=== PATIENT | male | born 1995 | race African-American/Black ===

== ENCOUNTER 2016-07-11 21:53 | Emergency (ER) | payer SELFPAY ==
[~2016-07-11] VITALS: Ht 190.5 cm; Wt 102.1 kg
== END 2016-07-11 23:09 | disposition home or self-care (01) ==
LOC: ED 21:53
DX: S01.01XA Laceration without foreign body of scalp, initial encounter (principal); W10.9XXA Fall (on) (from) unspecified stairs and steps, initial encounter; Y93.89 Activity, other specified; Y92.9 Unspecified place or not applicable; Y99.9 Unspecified external cause status

== ENCOUNTER 2017-06-15 13:38 | Emergency (ER) | payer SELFPAY ==
[~2017-06-15] VITALS: Ht 190.5 cm; Wt 104.3 kg
[2017-06-15] MEDS ORDERED: Motrin,Rufen800 MG PO (15:11)
[2017-06-15] MEDS ORDERED: CYCLOBENZAPRINE5 M3 PO (15:11)
== END 2017-06-15 15:14 | disposition home or self-care (01) ==
LOC: ED 13:38
DX: S20.229A Contusion of unspecified back wall of thorax, initial encounter (principal); F17.200 Nicotine dependence, unspecified, uncomplicated; W17.89XA Other fall from one level to another, initial encounter; Y93.89 Activity, other specified; Y92.89 Other specified places as the place of occurrence of the external cause; Y99.8 Other external cause status

== ENCOUNTER 2017-12-28 01:04 | Emergency (ER) | payer SELFPAY ==
[~2017-12-28] VITALS: Ht 187.9 cm; Wt 106.6 kg
--- NOTE | ~2017-12-28 | EKG ---
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
[~2017-12-28 01:04] MED LIST: CYCLOBENZAPRINE5 M3 PO; Motrin,Rufen800 MG PO
[2017-12-28 01:23] LABS: HEMATOCRIT 41.1 % (42.0-52.0); HEMOGLOBIN 13.5 g/dl (14.0-18.0); MEAN CELL VOLUME 89.7 fl (80.0-94.0); MEAN CORPUSCULAR HGB 29.5 pg (27.0-31.0); MEAN CORPUSCULAR HGB CONC 32.8 g/dl (33.0-37.0); MEAN PLATELET VOLUME 9.2 fl (9.6-12.3); PLATELET COUNT AUTOMATED 295 10*3/uL (130-400); RED BLOOD COUNT 4.58 10*6/uL (4.50-5.90); WHITE BLOOD COUNT 7.4 10*3/uL (4.8-10.8)
[2017-12-28 01:44] LABS: ALBUMIN 4.4 gm/dl (3.1-4.5); ALKALINE PHOSPHATASE 53 U/L (45-117); BUN 18 mg/dl (7-24); CHLORIDE 105 mmol/L (98-107); CREATININE 1.58 mg/dL (0.70-1.30); POTASSIUM 3.7 mmol/L (3.5-5.1); SGOT/AST 19 IU/L (3-35); SGPT/ALT 22 U/L (12-78); SODIUM 140 mmol/L (136-145); TOTAL PROTEIN 7.6 gm/dL (6.4-8.2)
[2017-12-28 01:45] LABS: TROPONIN I < 0.015 ng/ml (<0.045)
[2017-12-28 01:49] LABS: ATYPICAL LYMPHS 11 % (0-0); PLATELET SUFFICIENCY NORMAL (NORMAL); TOTAL CELLS COUNTED 100 #CELLS
[2017-12-28 02:05] LABS: URINE AMPHETAMINES < 1000 (1000ng/ml); URINE BARBITURATES < 200 (200ng/ml); URINE BENZODIAZEPINES < 200 (200ng/ml); URINE CANNABINOIDS (THC) > 50 (50ng/ml); URINE COCAINE < 300 (300ng/ml); URINE METHADONE < 300 (300ng/ml); URINE OPIATES < 300 (300ng/ml); URINE PHENCYCLIDINE < 25 (25ng/ml)
== END 2017-12-28 03:02 | disposition home or self-care (01) ==
LOC: ED 01:04
PROVIDERS: Emergency Medicine Emergency Medical Services
DX: R41.82 Altered mental status, unspecified (principal); R55 Syncope and collapse

== ENCOUNTER 2018-01-05 21:25 | Emergency (ER) | payer SELFPAY ==
[~2018-01-05] VITALS: Ht 182.8 cm; Wt 81.6 kg
--- NOTE | ~2018-01-05 | EKG ---
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
[2018-01-05 22:10] LABS: BASO % 0.2 % (0.0-1.0); EOS # 0.1 10*3/uL (0.0-0.4); EOS % 0.3 % (1.0-4.0); HEMATOCRIT 43.7 % (42.0-52.0); HEMOGLOBIN 14.5 g/dl (14.0-18.0); LYMPH # 1.6 10*3/uL (1.3-4.4); LYMPH % 8.1 % (27.0-41.0); MEAN CELL VOLUME 90.5 fl (80.0-94.0); MEAN CORPUSCULAR HGB CONC 33.2 g/dl (33.0-37.0); MONO # 1.4 10*3/uL (0.1-1.0); NEUT # 16.3 10*3/uL (2.3-7.9); NEUT % 83.4 % (47.0-73.0); PLATELET COUNT AUTOMATED 291 10*3/uL (130-400); RED BLOOD COUNT 4.83 10*6/uL (4.50-5.90); RED CELL DISTRI WIDTH 12.3 % (0-14.5); WHITE BLOOD COUNT 19.5 10*3/uL (4.8-10.8)
[2018-01-05 22:32] LABS: ALBUMIN 4.3 gm/dl (3.1-4.5); CREATININE 2.04 mg/dL (0.70-1.30); POTASSIUM 4.4 mmol/L (3.5-5.1); TOTAL PROTEIN 8.1 gm/dL (6.4-8.2)
[2018-01-05 22:33] LABS: TROPONIN I 0.058 ng/ml (<0.045)
== END 2018-01-06 00:28 | disposition left against medical advice (07) ==
LOC: ED 21:25
PROVIDERS: Emergency Medicine
DX: T50.7X1A Poisoning by analeptics and opioid receptor antagonists, accidental (unintentional), initial encounter (principal); Y92.098 Other place in other non-institutional residence as the place of occurrence of the external cause

== ENCOUNTER 2018-03-10 19:07 | Emergency (ER) | payer SELFPAY ==
[~2018-03-10] VITALS: Ht 187.9 cm; Wt 95.3 kg
== END 2018-03-10 22:33 | disposition left against medical advice (07) ==
LOC: ED 19:07
DX: T50.901A Poisoning by unspecified drugs, medicaments and biological substances, accidental (unintentional), initial encounter (principal); Z53.21 Procedure and treatment not carried out due to patient leaving prior to being seen by health care provider

== ENCOUNTER 2018-07-30 02:06 | Emergency (ER) | payer SELFPAY ==
[~2018-07-30] VITALS: Ht 187.9 cm; Wt 104.3 kg
[2018-09-15] MEDS ORDERED: VISTARIL50 MG PO (23:55)
[2018-09-15] MEDS ORDERED: ELIMITE 5%60 GM T (23:55)
== END 2018-07-30 03:32 | disposition home or self-care (01) ==
LOC: ED 02:06
DX: T50.901A Poisoning by unspecified drugs, medicaments and biological substances, accidental (unintentional), initial encounter (principal); R11.10 Vomiting, unspecified; Y92.89 Other specified places as the place of occurrence of the external cause

== ENCOUNTER 2018-08-04 07:46 | Emergency (ER) | payer SELFPAY ==
[~2018-08-04] VITALS: Ht 187.9 cm; Wt 104.3 kg
[2018-09-15] MEDS ORDERED: ELIMITE 5%60 GM T (23:55)
[2018-09-15] MEDS ORDERED: VISTARIL50 MG PO (23:55)
== END 2018-08-04 08:09 | disposition left against medical advice (07) ==
LOC: ED 07:46
DX: T40.1X1A Poisoning by heroin, accidental (unintentional), initial encounter (principal); R40.20 Unspecified coma; Y92.89 Other specified places as the place of occurrence of the external cause

== ENCOUNTER 2018-11-28 22:34 | Emergency (ER) | payer BC ==
[~2018-11-28] VITALS: Ht 187.9 cm; Wt 104.3 kg
[~2018-11-28 22:34] MED LIST changes: +ELIMITE 5%60 GM T; +VISTARIL50 MG PO
[2018-11-28] MEDS ORDERED: ELIMITE 5%60 GM T (22:54)
[2018-11-28] MEDS ORDERED: CEPHALEXIN500 M1 PO (22:54)
== END 2018-11-29 01:20 | disposition home or self-care (01) ==
LOC: ED 22:34
DX: R21 Rash and other nonspecific skin eruption (principal); L29.9 Pruritus, unspecified

== ENCOUNTER 2019-01-04 01:58 | Emergency (ER) | payer BC ==
[~2019-01-04] VITALS: Ht 187.9 cm; Wt 99.8 kg
[~2019-01-04 01:58] MED LIST changes: +CEPHALEXIN500 M1 PO
[2019-01-04 02:38] LABS: BASO % 0.5 % (0.0-1.0); EOS # 0.3 10*3/uL (0.0-0.4); EOS % 4.2 % (1.0-4.0); HEMATOCRIT 39.9 % (42.0-52.0); HEMOGLOBIN 13.4 g/dl (14.0-18.0); LYMPH # 2.5 10*3/uL (1.3-4.4); LYMPH % 32.9 % (27.0-41.0); MEAN CELL VOLUME 88.5 fl (80.0-94.0); MEAN CORPUSCULAR HGB 29.7 pg (27.0-31.0); MEAN CORPUSCULAR HGB CONC 33.6 g/dl (33.0-37.0); MEAN PLATELET VOLUME 10.4 fl (9.6-12.3); MONO # 1.1 10*3/uL (0.1-1.0); MONO % 14.9 % (3.0-9.0); NEUT # 3.6 10*3/uL (2.3-7.9); NEUT % 47.2 % (47.0-73.0); PLATELET COUNT AUTOMATED 337 10*3/uL (130-400); RED BLOOD COUNT 4.51 10*6/uL (4.50-5.90); RED CELL DISTRI WIDTH 12.4 % (0-14.5); WHITE BLOOD COUNT 7.6 10*3/uL (4.8-10.8)
[2019-01-04 02:55] LABS: ALKALINE PHOSPHATASE 55 U/L (45-117); BUN 15 mg/dl (7-24); CHLORIDE 103 mmol/L (98-107); CREATININE 1.44 mg/dL (0.70-1.30); POTASSIUM 3.8 mmol/L (3.5-5.1); SGOT/AST 41 IU/L (3-35); SGPT/ALT 24 U/L (12-78); SODIUM 137 mmol/L (136-145); TOTAL PROTEIN 8.1 gm/dL (6.4-8.2)
[2019-01-04] MEDS ORDERED: CLINDAMYCIN HC300 MG PO (05:40)
[2019-01-04] MEDS ORDERED: ELIMITE 5%60 GM T (05:41)
== END 2019-01-04 06:20 | disposition left against medical advice (07) ==
LOC: ED 01:58
PROVIDERS: Emergency Medicine
DX: L03.115 Cellulitis of right lower limb (principal); B86 Scabies

== ENCOUNTER 2019-04-03 19:22 | Emergency (ER) | payer SELFPAY ==
[~2019-04-03 19:22] MED LIST changes: +CLINDAMYCIN HC300 MG PO
[2019-04-03 20:39] LABS: BASO % 0.4 % (0.0-1.0); EOS # 0.3 10*3/uL (0.0-0.4); EOS % 2.9 % (1.0-4.0); HEMATOCRIT 41.7 % (42.0-52.0); HEMOGLOBIN 13.5 g/dl (14.0-18.0); LYMPH # 2.7 10*3/uL (1.3-4.4); LYMPH % 28.6 % (27.0-41.0); MEAN CELL VOLUME 89.9 fl (80.0-94.0); MEAN CORPUSCULAR HGB 29.1 pg (27.0-31.0); MEAN CORPUSCULAR HGB CONC 32.4 g/dl (33.0-37.0); MEAN PLATELET VOLUME 9.1 fl (9.6-12.3); MONO # 1.3 10*3/uL (0.1-1.0); MONO % 13.6 % (3.0-9.0); NEUT # 5.1 10*3/uL (2.3-7.9); NEUT % 54.3 % (47.0-73.0); PLATELET COUNT AUTOMATED 351 10*3/uL (130-400); RED BLOOD COUNT 4.64 10*6/uL (4.50-5.90); RED CELL DISTRI WIDTH 12.3 % (0-14.5); WHITE BLOOD COUNT 9.4 10*3/uL (4.8-10.8)
[2019-04-03 20:54] LABS: ALBUMIN 3.6 gm/dl (3.1-4.5); ALKALINE PHOSPHATASE 74 U/L (45-117); BUN 9 mg/dl (7-24); CHLORIDE 105 mmol/L (98-107); CREATININE 1.38 mg/dL (0.70-1.30); POTASSIUM 3.5 mmol/L (3.5-5.1); SGOT/AST 13 IU/L (3-35); SGPT/ALT 21 U/L (12-78); SODIUM 139 mmol/L (136-145); TOTAL PROTEIN 7.7 gm/dL (6.4-8.2)
[2019-04-03] MEDS ORDERED: DOXYCYCLINE100 M3 PO (22:49)
== END 2019-04-03 23:40 | disposition home or self-care (01) ==
LOC: ED 19:22
PROVIDERS: Nurse Practitioner Family
DX: M25.562 Pain in left knee (principal); L03.114 Cellulitis of left upper limb

== ENCOUNTER 2019-04-05 21:10 | Inpatient (IN) | payer SELFPAY ==
[~2019-04-05] VITALS: Ht 187.9 cm; Wt 104.3 kg
[~2019-04-05 21:10] MED LIST changes: +DOXYCYCLINE100 M3 PO
[2019-04-05 21:12] VITALS: BP 146/80
[2019-04-05 22:20] LABS: HEMATOCRIT 37.3 % (42.0-52.0); HEMOGLOBIN 12.1 g/dl (14.0-18.0); MEAN CELL VOLUME 90.3 fl (80.0-94.0); MEAN CORPUSCULAR HGB 29.3 pg (27.0-31.0); MEAN CORPUSCULAR HGB CONC 32.4 g/dl (33.0-37.0); PLATELET COUNT AUTOMATED 294 10*3/uL (130-400); RED BLOOD COUNT 4.13 10*6/uL (4.50-5.90); RED CELL DISTRI WIDTH 12.2 % (0-14.5)
[2019-04-05 22:33] LABS: ALBUMIN 3.5 gm/dl (3.1-4.5); ALKALINE PHOSPHATASE 76 U/L (45-117); BUN 11 mg/dl (7-24); CHLORIDE 108 mmol/L (98-107); CREATININE 1.57 mg/dL (0.70-1.30); POTASSIUM 3.5 mmol/L (3.5-5.1); SGOT/AST 21 IU/L (3-35); SGPT/ALT 22 U/L (12-78); SODIUM 141 mmol/L (136-145); TOTAL PROTEIN 7.4 gm/dL (6.4-8.2)
[2019-04-05 23:08] LABS: TOTAL CELLS COUNTED 100 #CELLS
[2019-04-05 23:09] LABS: MICROCYTOSIS SLIGHT; PLATELET SUFFICIENCY NORMAL (NORMAL)
[2019-04-06] VITALS: BP 146/80
--- NOTE | 2019-04-06 01:50 | NUR ---
UNABLE TO ACCESS MEDICATION FROM PYXIS. AWAITING NURSING DISTANCE EDUCATION DIRECTOR.
--- NOTE | 2019-04-06 03:39 | NUR ---
PT RESTING IN BED AT THIS TIME. NO VOICED COMPLAINTS. CALL LIGHT WITHIN REACH, WILL CONTINUE TO MONITOR.
[2019-04-06 04:00] VITALS: BP 146/80
--- NOTE | 2019-04-06 04:41 | NUR ---
PT CONTINUES TO SLEEP IN ROOM. RESTING COMFORTABLY, NO VOICED COMPLAINTS. CALL LIGHT WITHIN REACH. WILL CONTINUE TO MONITOR.
--- NOTE | 2019-04-06 05:36 | NUR ---
NOTIFICATION FROM LAB OF THE LACTIC ACID OF 2.3 LEE VILLEGAS RN.
[2019-04-06 06:12] LABS: HEMOGLOBIN 11.5 g/dl (14.0-18.0); MEAN CORPUSCULAR HGB 28.8 pg (27.0-31.0); MEAN CORPUSCULAR HGB CONC 31.9 g/dl (33.0-37.0); MEAN PLATELET VOLUME 9.2 fl (9.6-12.3); PLATELET COUNT AUTOMATED 307 10*3/uL (130-400); RED CELL DISTRI WIDTH 12.2 % (0-14.5); WHITE BLOOD COUNT 15.3 10*3/uL (4.8-10.8)
--- NOTE | 2019-04-06 06:15 | NUR ---
PT REMAINS SLEEPING IN BED AT THIS TIME. NO VOICED COMPLAINTS. WILL CONTINUE TO MONITOR.
[2019-04-06 06:16] LABS: ALBUMIN 3.1 gm/dl (3.1-4.5); ALKALINE PHOSPHATASE 73 U/L (45-117); BUN 11 mg/dl (7-24); CHLORIDE 109 mmol/L (98-107); CREATININE 1.46 mg/dL (0.70-1.30); PHOSPHOROUS 2.3 mg/dL (2.5-4.9); POTASSIUM 3.6 mmol/L (3.5-5.1); SGOT/AST 21 IU/L (3-35); SGPT/ALT 20 U/L (12-78); SODIUM 140 mmol/L (136-145); TOTAL PROTEIN 6.9 gm/dL (6.4-8.2)
[2019-04-06 07:35] LABS: BASOPHILS 1 % (0-1); PLATELET SUFFICIENCY NORMAL (NORMAL); TOTAL CELLS COUNTED 100 #CELLS
[2019-04-06 07:37] VITALS: BP 129/53
--- NOTE | 2019-04-06 07:39 | NUR ---
REPORT RECEIVED FROM DANIELLE SIMPSON.PT ALERT/ORIENTED X3. VITALS STABLE. AWAITING ADMISSION BED. NO C/O PAIN. LEFT UPPER ARM SWOLLEN...PT STATES IT APPEARS LESS SWOLLEN THAN YESTERDAY. PT HAS MULTIPLE OLD SCARRED AREAS TO BOTH ARMS. ----- ---CARMELA BUCKLEY RN
[2019-04-06 08:32] LABS: BILIRUBIN NEGATIVE (NEGATIVE); BLOOD 1+ (NEGATIVE); CLARITY CLEAR (CLEAR); COLOR YELLOW (YELLOW); GLUCOSE NEGATIVE (NEGATIVE); KETONE NEGATIVE (NEGATIVE); LEUKO ESTERASE NEGATIVE (NEGATIVE); NITRITE NEGATIVE (NEGATIVE); UROBILINOGEN 0.2 E.U./dl (0.2-1.0)
[2019-04-06 08:41] LABS: RBC 0-2 rbc/hpf (0-2); WBC 0-2 wbc/hpf (0-5)
[2019-04-06 08:49] LABS: URINE AMPHETAMINES < 1000 (1000ng/ml); URINE BARBITURATES < 200 (200ng/ml); URINE BENZODIAZEPINES < 200 (200ng/ml); URINE CANNABINOIDS (THC) > 50 (50ng/ml); URINE COCAINE > 300 (300ng/ml); URINE METHADONE < 300 (300ng/ml); URINE OPIATES > 300 (300ng/ml)
[2019-04-06 08:52] LABS: URINE PHENCYCLIDINE < 25 (25ng/ml)
[2019-04-06 09:00] VITALS: BP 146/80
--- NOTE | 2019-04-06 09:00 | NUR ---
The assessment has been completed. AYDEN RIVAS Time: 09 A 24 year old MALE admitted to 5E under services of JARROD RUIZ DO. Pt. arrived via ambulatory from ER. Chief complaint: CELLULITIS OF LEFT UPPER ARM,ABSCESS. AYDEN RIVAS
--- NOTE | 2019-04-06 09:09 | NUR ---
THIS NURSE AND RECREATIONAL COUNSELOR ISA ATTEMPTING TO COMPLETE ADMISSION PROCESS. PT YELLING OUT AND CURSING. ATTEMPTING TO DE-ESCALATE PT. PT IS VERY JUMPY, ANXIOUS AND TEARFUL.
[2019-04-06 09:30] VITALS: BP 140/86
--- NOTE | 2019-04-06 09:58 | NUR ---
PT FOUND TO HAVE RIPPED IV OUT AND DISCONNECTED TUBING FROM IV PUMP. C/O INCREASED ANIXETY AND RESTLESSNESS. MEDICATED W CLONIDINE AND VISTARIL. WILL MONITOR FOR RELIEF. TATIANA STOVALL STARTED NEW 22G IV IN THE RIGHT ARM.
--- NOTE | 2019-04-06 10:13 | NUR ---
INFORMED CARE TEAM OF PATIENT REFUSING TO GO SURGERY. HE STATES HE TOOK "ALOT OF DRUGS BEFORE COMING INTO THE ER YESTERDAY AND HES SCARED HES GOING TO OVERDOSE AGAIN". DR RIVERA STATES HE WILL COME UP TO SEE THE PT
--- NOTE | 2019-04-06 10:16 | NUR ---
DR RIVERA IN TO TALK WITH PT
--- NOTE | 2019-04-06 11:00 | NUR ---
PT AGREEABLE TO HAVE BEDSIDE I&D. INFORMED CONSENT FORM SIGNED OFF BY TWO RNS AND TWO DOCTORS. PT HAD POSITIVE TOXICOLOGY SCREEN AND WAS UNABLE TO SIGN. PT TOLERATED PROCEDURE WELL. GUAZE DRESSING C/D/I
[2019-04-06 12:00] VITALS: BP 150/76
--- NOTE | 2019-04-06 12:33 | NUR ---
Filament Cutter in to talk to patient. Patient states lives at HOME with PARENTS. There are FEW steps in the home. Physician: NONE Pharmacy: [facility] Home health services: NONE Patient's level of ADLs: INDEPENDENT Patient has working utilities: YES DME: NONE Follow-up physician's appointment after d/c: WILL FIND ONE AND MAKE APPOINTMENT AFTER DISCHARGE Does patient want to access PORTAL?: NO Discharge plan PT LIVES AT HOME WITH PARENTS AND IS INDEPENDENT IN HIS CARE. STATES HE WILL HAVE NO NEW NEEDS ON DISCHARGE. PLANS TO RETURN HOME. WILL CONTINUE TO FOLLOW. PT STATES HE IS ON PROBATION FOR DRUG COURT AND NEEDS A PAPER FAXED TO THEM STATING HE IS IN THE HOSPITAL. STATES YOU CAN TELL THEM I AM HERE BUT NOT WHY I AM HERE. PT PROVIDED NUMBER AND LETTER WAS FAXED TO JERALD KRAMER AT [facility] THAT STATED PT WAS HERE AND NOTHING ELSE. WILL CONTINUE TO FOLLOW.. BRE DREW
--- NOTE | 2019-04-06 14:17 | NUR ---
PT RESTING IN ROOM WITH FRIENDS AT BEDSIDE. VOICES NO CONCERNS AT THIS TIME. APPEARS TO BE LESS ANXIOUS AND JITTERY. RESPS EASY AND NON LABORED. NO S/S OF DISTRESS NOTED.
--- NOTE | 2019-04-06 15:11 | NUR ---
PT FOUND TO BE PACING HALLWAY BECOMING VERY AGITATED. CALLED AND TOLD DR EDWARD. STATED HE WOULD PUT SOMETHING IN
--- NOTE | 2019-04-06 15:15 | NUR ---
STAFF ATTEMPTING TO CALM PT DOWN. RIPPED OUT IV AGAIN. CONTINUES TO YELL AT STAFF MEMBERS IN THE HALLWAY AND IN ROOM. SHIFT DIRECTOR NOTIFIED. SECURITY CALLED TO THE FLOOR.
--- NOTE | 2019-04-06 15:38 | NUR ---
DR VAIL AT BEDSIDE. EXPLAIN RISKS OF LEAVING AMA TO PT. NURSE FINGERPRINT EXPERT AND DIRECTOR PRESENT. PT IS ALERT AND ORIENTEDX3. BECOMING INCREASINGLY AGITATED. CRYING AND BEHAVIOR ERRATIC. PT STATES HE WOULD LIKE TO LEAVE AMA. AWAITING TRANSPORTATION AT THIS TIME. DR VAIL AT BEDSIDE.
--- NOTE | 2019-04-06 15:48 | NUR ---
TWO VISITORS ATTEMPTED TO VISIT PT. ROTARY CUTTER FEEDER ASKED THEM TO PLEASE WAIT IN THE WAITING AREA. PT IS CURRENTLY YELLING AND CURSING AT DIRECTOR IN THE MIDDLE OF THE HALLWAY. THREATING TO "FLIP OUT". PT SLAMMED DOOR IN DIRECTORS FACE. DIRECTOR STATED TO CALL THE POLICE AND CALL A [employer].
--- NOTE | 2019-04-06 15:51 | NUR ---
ANOTHER RN ATTEMPTING TO REACH PTS MOTHER AT THIS TIME. SHE STATES SHES ABOUT 5 MINS AWAY AT THIS TIME.
[2019-04-06] MEDS ORDERED: DOXYCYCLINE100 M3 PO (15:54)
[2019-04-06] MEDS ORDERED: KEFLEX500 M1 PO (15:54)
--- NOTE | 2019-04-06 16:07 | NUR ---
PTS MOTHER ARRIVED TO THE FLOOR. CURRENTLY IN TO TALK WITH PT
--- NOTE | 2019-04-06 16:33 | NUR ---
PT ESCORTED OFF FLOOR BY [facility].
--- NOTE | 2019-04-06 16:54 | NUR ---
The Discharge Plan/Instructions have been completed.
== END 2019-04-06 16:54 | disposition other institution (70) | DRG 871 ==
LOC: ED 21:10 → 5E 23:35 → EDHOLD 23:35 → 5E 04-06 08:38
PROVIDERS: Nurse Practitioner Family; Student in an Organized Health Care Education/Training Program; ADMIT Internal Medicine
PROC: 0X990ZZ Drainage of Left Upper Arm, Open Approach (ICD-10-PCS; principal; 2019-04-06)
DX: A41.9 Sepsis, unspecified organism (principal); N17.0 Acute kidney failure with tubular necrosis; L03.114 Cellulitis of left upper limb; L02.414 Cutaneous abscess of left upper limb; D64.9 Anemia, unspecified; F12.10 Cannabis abuse, uncomplicated; F14.10 Cocaine abuse, uncomplicated; R73.9 Hyperglycemia, unspecified; E87.8 Other disorders of electrolyte and fluid balance, not elsewhere classified; F11.10 Opioid abuse, uncomplicated; D72.810 Lymphocytopenia; F17.210 Nicotine dependence, cigarettes, uncomplicated; E83.39 Other disorders of phosphorus metabolism

== ENCOUNTER 2019-05-09 22:11 | Emergency (ER) | payer SELFPAY ==
[~2019-05-09] VITALS: Ht 182.8 cm; Wt 81.6 kg
[~2019-05-09 22:11] MED LIST changes: +KEFLEX500 M1 PO
[2019-05-10 02:28] LABS: BASO # 0.1 10*3/uL (0.0-0.1); BASO % 0.5 % (0.0-1.0); EOS # 0.4 10*3/uL (0.0-0.4); EOS % 4.7 % (1.0-4.0); HEMATOCRIT 40.4 % (42.0-52.0); HEMOGLOBIN 12.9 g/dl (14.0-18.0); LYMPH # 3.2 10*3/uL (1.3-4.4); LYMPH % 34.2 % (27.0-41.0); MEAN CELL VOLUME 90.6 fl (80.0-94.0); MEAN CORPUSCULAR HGB 28.9 pg (27.0-31.0); MEAN CORPUSCULAR HGB CONC 31.9 g/dl (33.0-37.0); MEAN PLATELET VOLUME 9.4 fl (9.6-12.3); MONO # 1.1 10*3/uL (0.1-1.0); MONO % 11.8 % (3.0-9.0); NEUT # 4.6 10*3/uL (2.3-7.9); NEUT % 48.6 % (47.0-73.0); PLATELET COUNT AUTOMATED 292 10*3/uL (130-400); RED BLOOD COUNT 4.46 10*6/uL (4.50-5.90); RED CELL DISTRI WIDTH 12.8 % (0-14.5); WHITE BLOOD COUNT 9.4 10*3/uL (4.8-10.8)
[2019-05-10 02:51] LABS: ALBUMIN 3.9 gm/dl (3.1-4.5); ALKALINE PHOSPHATASE 58 U/L (45-117); BUN 12 mg/dl (7-24); CHLORIDE 108 mmol/L (98-107); CREATININE 1.68 mg/dL (0.70-1.30); POTASSIUM 4.4 mmol/L (3.5-5.1); SGOT/AST 20 IU/L (3-35); SGPT/ALT 24 U/L (12-78); SODIUM 141 mmol/L (136-145); TOTAL PROTEIN 7.3 gm/dL (6.4-8.2)
[2019-05-10 02:52] LABS: TROPONIN I 0.032 ng/ml (<0.045)
== END 2019-05-10 04:50 | disposition home or self-care (01) ==
LOC: ED 22:11
PROVIDERS: Emergency Medicine
DX: T40.1X1A Poisoning by heroin, accidental (unintentional), initial encounter (principal); F17.210 Nicotine dependence, cigarettes, uncomplicated; Y92.89 Other specified places as the place of occurrence of the external cause

== ENCOUNTER 2019-05-27 13:34 | Emergency (ER) | payer SELFPAY ==
[~2019-05-27] VITALS: Ht 187.9 cm; Wt 104.3 kg
[2019-05-27] MEDS ORDERED: CLINDAMYCIN HC300 MG PO (14:30)
== END 2019-05-27 16:51 | disposition home or self-care (01) ==
LOC: ED 13:34
DX: T40.0X1A Poisoning by opium, accidental (unintentional), initial encounter (principal); L51.9 Erythema multiforme, unspecified; R40.20 Unspecified coma; L02.413 Cutaneous abscess of right upper limb; F17.210 Nicotine dependence, cigarettes, uncomplicated; Y92.89 Other specified places as the place of occurrence of the external cause

== ENCOUNTER 2019-09-26 10:25 | Inpatient (IN) | payer BC ==
[~2019-09-26] VITALS: Ht 187.9 cm; Wt 95.9 kg
[2019-09-26 10:29] VITALS: BP 126/89
[2019-09-26 11:05] LABS: HEMATOCRIT 32.3 % (42.0-52.0); MEAN CELL VOLUME 88.3 fl (80.0-94.0); MEAN CORPUSCULAR HGB 28.4 pg (27.0-31.0); MEAN CORPUSCULAR HGB CONC 32.2 g/dl (33.0-37.0); MEAN PLATELET VOLUME 9.4 fl (9.6-12.3); PLATELET COUNT AUTOMATED 299 10*3/uL (130-400); RED BLOOD COUNT 3.66 10*6/uL (4.50-5.90); RED CELL DISTRI WIDTH 13.6 % (0-14.5); WHITE BLOOD COUNT 15.3 10*3/uL (4.8-10.8)
[2019-09-26 11:13] LABS: ALKALINE PHOSPHATASE 81 U/L (45-117); BUN 16 mg/dl (7-24); CHLORIDE 107 mmol/L (98-107); CREATININE 1.36 mg/dL (0.70-1.30); POTASSIUM 3.8 mmol/L (3.5-5.1); SGOT/AST 106 IU/L (3-35); SGPT/ALT 80 U/L (12-78); SODIUM 139 mmol/L (136-145); TOTAL PROTEIN 7.4 gm/dL (6.4-8.2)
--- NOTE | 2019-09-26 11:13 | NUR ---
PT STILL UNABLE TO VOID,FLUIDS PROVIDED.SAFETY PRECAUTIONS INTACT AND CALL LIGHT WITHIN REACH.
[2019-09-26 11:29] LABS: BASOPHILS 1 % (0-1); PLATELET SUFFICIENCY NORMAL (NORMAL); TOTAL CELLS COUNTED 100 #CELLS
[2019-09-26 13:00] VITALS: BP 132/82
[2019-09-26 13:30] VITALS: BP 137/62
--- NOTE | 2019-09-26 13:30 | NUR ---
Time: 1329 A 24 year old MALE admitted to 5E under services of CRISTINO PADILLA DO. Pt. arrived via CART from ER. Chief complaint: CELLULITIS AND ABSCESS OF UPPER ARM AND FOREARM. IV- LAC C/D/I. PT HAS MULTIPLE SCABS AND ULCERS GENERALIZED OVER BODY. RT ARM IS SWOLLEN, RED, AND DRAINING. RIGHT ARM IS ALSO PAINFUL TO TOUCH. PEDRO AVILES
[2019-09-26 13:49] VITALS: BP 137/62
--- NOTE | 2019-09-26 14:10 | NUR ---
CALLED AND NOTIFIED DR. VAIL OF PATIENTS ARRIVAL. AWAITING ORDERS.
--- NOTE | 2019-09-26 14:30 | NUR ---
PRN TYLENOL WAS GIVEN FOR PT'S RIGHT ARM PAIN. WILL REASSESS EFFECTIVENESS.
--- NOTE | 2019-09-26 14:40 | NUR ---
CALLED DR. VAIL IN REGARDS TO URINE DRUG SCREEN, PT WAS AGREEABLE WITH SENDING A URINE SAMPLE. ALSO TOLD DR. VAIL THAT PT WAS WANTING IBUPROFEN, PER DR. VAIL PT CAN NOT RECEIVE IBUPROFEN DUE TO KIDNEY FUNCTION. THIS INFORMATION WAS ALSO RELAYED TO THE PATIENT AND HE STATED IT WAS OKAY. ALSO NOTIFIED HIM THAT PT'S RIGHT ARM IS SWOLLEN AND DRAINING. CULTURE NEEDS DONE PER DR. VAIL. SEE NEW ORDERS.
[2019-09-26 14:58] LABS: URINE AMPHETAMINES < 1000 (1000ng/ml); URINE BARBITURATES < 200 (200ng/ml); URINE BENZODIAZEPINES < 200 (200ng/ml); URINE CANNABINOIDS (THC) < 50 (50ng/ml); URINE COCAINE > 300 (300ng/ml); URINE METHADONE < 300 (300ng/ml); URINE OPIATES < 300 (300ng/ml)
[2019-09-26 15:00] LABS: URINE PHENCYCLIDINE < 25 (25ng/ml)
--- NOTE | 2019-09-26 15:30 | NUR ---
PRN TYLENOL WAS EFFECTIVE. PT IS CURRENTLY SLEEPING WITH NO SIGNS OF DISTRESS.
[2019-09-26 16:00] VITALS: BP 126/59
--- NOTE | 2019-09-26 18:56 | NUR ---
PRN TYLENOL GIVEN FOR A PAIN LEVEL OF 10/10 ON RT ARM. WILL REASSESS EFFECTIVENESS.
[2019-09-26 20:00] VITALS: BP 149/74
--- NOTE | 2019-09-27 | NUR ---
PATIENT REFUSED MIDNIGHT VITALS.
--- NOTE | 2019-09-27 00:32 | NUR ---
PATIENT MEDICATED WITH TYLENOL FOR TEMP OF 101.7. WILL MONITOR FOR EFFECTIVENESS. CALL LIGHT IN REACH.
--- NOTE | 2019-09-27 05:43 | NUR ---
TYLENOL GIVEN FOR ARM DISCOMFORT. TEMP AT THIS TIME 98.8. REFUSED AM LAB DRAW. WILL CONTINUE TO MONITOR.
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
[2019-09-27 08:00] VITALS: BP 130/82
--- NOTE | 2019-09-27 08:34 | NUR ---
Dr. Manjarrez notified of wound care recommendations.
--- NOTE | 2019-09-27 08:46 | NUR ---
ASSESSMENT COMPLETE, PT STATES PAIN RIGHT ARM, EDEMA FROM FINGERS TO ELBOW. PT CAN WIGGLE GINGERS, CLOSE HAND SLIGHTLY, NOT COMPLETLY. PT DOES NOT HAVE AN IDEA OF WHEN HE LAST HAD A BOWEL MOVEMENT, HE STATES HE USUALLY ONLY HAS A BM EVERY FEW DAYS. NO COMPLAINTS OF N/V/D/C AT THIS TIME. PT STATES NO NEEDS. IV LEFT AC INTACT, VANC INFUSING. WILL MONITOR FOR NEEDS.
--- NOTE | 2019-09-27 10:27 | NUR ---
pt request tylenol for right arm pain 11/07, tylenol given. will monitor for effectiveness.
--- NOTE | 2019-09-27 10:50 | NUR ---
DR. FERRIS NOTIFIED OF POSITIVE BLOOD CULTURE RESULTS, NO NEW ORDERS AT THIS TIME
--- NOTE | 2019-09-27 11:06 | NUR ---
PT HAD PREVIOUSLY REFUSED BLOOD WORK, BLOOD CULTURES WERE ORDERED, PT ALLOWED LABS TO BE DRAWN. AM LABS REORDERED.
[2019-09-27 11:14] LABS: BASO % 0.1 % (0.0-1.0); EOS # 0.1 10*3/uL (0.0-0.4); EOS % 0.4 % (1.0-4.0); HEMATOCRIT 32.6 % (42.0-52.0); LYMPH # 1.7 10*3/uL (1.3-4.4); LYMPH % 12.1 % (27.0-41.0); MEAN CELL VOLUME 86.5 fl (80.0-94.0); MEAN CORPUSCULAR HGB 28.4 pg (27.0-31.0); MEAN CORPUSCULAR HGB CONC 32.8 g/dl (33.0-37.0); MEAN PLATELET VOLUME 9.4 fl (9.6-12.3); MONO # 1.1 10*3/uL (0.1-1.0); MONO % 8.1 % (3.0-9.0); NEUT # 10.8 10*3/uL (2.3-7.9); NEUT % 78.9 % (47.0-73.0); PLATELET COUNT AUTOMATED 282 10*3/uL (130-400); RED BLOOD COUNT 3.77 10*6/uL (4.50-5.90); RED CELL DISTRI WIDTH 13.6 % (0-14.5); WHITE BLOOD COUNT 13.7 10*3/uL (4.8-10.8)
[2019-09-27 11:25] LABS: BUN 7 mg/dl (7-24); CHLORIDE 108 mmol/L (98-107); CREATININE 1.11 mg/dL (0.70-1.30); POTASSIUM 3.4 mmol/L (3.5-5.1); SODIUM 138 mmol/L (136-145)
[2019-09-27 12:00] VITALS: BP 149/76
--- NOTE | 2019-09-27 12:13 | NUR ---
Flute Grinder in to talk to patient. Patient states lives at HOME with PARENTS. There are 14 steps in the home. Physician: VANDANA Pharmacy: [facility] [place] health services: NONE Patient's level of ADLs: INDEPENDENT Patient has working utilities: YES DME: NONE Follow-up physician's appointment after d/c: WILL BE MADE BY HOSPITALIST NURSE DIRECTOR ON DISCHARGE Does patient want to access PORTAL?: NO Discharge plan PT LIVES AT HOME WITH HIS PARENTS AND IS INDEPENDENT IN HIS CARE. DENIES HE WILL HAVE ANY NEEDS ON DISCHARGE. PLAN IS TO RETURN HOME WITH PARENTS. WILL CONTINUE TO FOLLOW. WILL HAVE A RIDE HOME PER PT.. BRE DREW
--- NOTE | 2019-09-27 12:34 | NUR ---
Nursing screen received and chart reviewed. Patient admitted for cellulitis and abscess to the upper arm and forearm. If patient has a decline in ADLs, transfers, or functional mobility, please send OT orders. Thank you. Bonny Jorge OTR/L
--- NOTE | 2019-09-27 13:57 | NUR ---
Nutritional Support Services Note: Appetite is good for meals, he is eating 100% of regular diet. He has cellulitis noted and an abscess of his upper arm and forearm. Continut to encourage 100% intake of meals. Will provide pt iwth a night snack. Will follow as needed. Sarah Kimball Rdn Ld
--- NOTE | 2019-09-27 13:59 | NUR ---
DR. BOUDREAUX AWARE OF CONSULT, WILL SEE LATER TODAY
--- NOTE | 2019-09-27 14:16 | NUR ---
NOTIFIED DR. MONET THAT PATIENT IN A LOT OF PAIN, REQUESTING SOMETHING MORE THAN TYLENOL FOR PAIN. NO VERBAL ORDERS GIVEN
--- NOTE | 2019-09-27 14:57 | NUR ---
PT GIVEN TORADOL FOR C/O RIGHT ARM PAIN SENT TO ULTRASOUND
--- NOTE | 2019-09-27 15:20 | NUR ---
ATTEMPTED TO CALL CONSULT TO DR. VELEZ OFFICE SEVERAL TIMES, ON HOLD MORE THAN 5 MINUTE EACH ATTEMPT AT CALLING, SEVERAL TIMES THE LINE DISCONNECTED AFTER A FEW MINUTE HOLD. WILL KEEP TRYING TO GET THROUGH TO OFFICE TO NOTIFY OF CONSULT
[2019-09-27 16:00] VITALS: BP 136/60
--- NOTE | 2019-09-27 16:13 | NUR ---
DR. VELEZ ANSWERING SERVICE NOTIFIED OF CONSULT, WILL NOTIFY PHYSICIAN
--- NOTE | 2019-09-27 18:33 | NUR ---
PT COMPLAIN OF RIGHT ARM PAIN 7/10, NORCO GIVEN. WILL MONITOR FOR EFFECTIVENESS
--- NOTE | 2019-09-27 19:45 | NUR ---
PT C/O BACK PAIN 11/07. MEDICATED W/MORHPINE IVP. PT TEACHING GIVEN ON NEED TO AMBULATE TO AVOID BLOOD CLOTS, BACK PAIN, AND CONSTIPATION. PT ACKNOWLEDGES. RUE ELEVATED ON PILLOWS. SWELLING DECREASED FROM THIS AM. PT ADVISED OF NPO STATUS AFTER MIDNIGHT FOR SURGERY. CALL LIGHT IN REACH.
--- NOTE | 2019-09-27 20:45 | NUR ---
PT STATES THE MORPHINE WAS SOMEWHAT EFFECTIVE FOR BACK PAIN RELIEF.
--- NOTE | 2019-09-27 22:11 | NUR ---
PT CONTINUES TO C/O BACK PAIN. PT ENCOURAGED TO AMBULATE. PT ASSISTED TO RECLINER CHAIR IN ROOM. RUE ELEVATED ON PILLOWS. BLANKETS APPLIED OVER PT PER HIS REQUEST D/T FEELING CHILLED. CALL LIGHT IN REACH.
--- NOTE | 2019-09-27 22:45 | NUR ---
PT CONTINUES TO C/O BACK PAIN. ASSISTED BACK TO BED. MEDICATED W/NORCO.
--- NOTE | 2019-09-27 23:45 | NUR ---
PT RESTING QUIETLY IN BED W/EYES CLOSED. CALL LIGHT IN REACH.
[2019-09-28] VITALS (11 sets, daily range): BP systolic 113–175; BP diastolic 52–90
--- NOTE | 2019-09-28 01:55 | NUR ---
PT MEDICATED W/MORPHINE IVP FOR C/O RT ARM PAIN 11/07. RUE REMAINS ELEVATED ON PILLOWS/BEDSIDE TABLE. PT OFFERED ICE PACK AND REFUSED.
--- NOTE | 2019-09-28 02:04 | NUR ---
PT MEDICATED W/RESTORIL FOR C/O INSOMNIA.
--- NOTE | 2019-09-28 02:55 | NUR ---
PRN MORPHINE EFFECTIVE FOR PAIN RELIED EVIDENCED BY NO S/S OF DISTRESS NOTED AND PT SLEEPING. CALL LIGHT IN REACH.
--- NOTE | 2019-09-28 03:00 | NUR ---
PT RESTING QUEITLY IN BED W/EYES CLOSED. PRN RESTORIL EFFECTIVE.
--- NOTE | 2019-09-28 03:39 | NUR ---
PT MEDICATED W/NORCO FOR C/O RUE PAIN 01/07 AT THIS TIME.
--- NOTE | 2019-09-28 07:40 | NUR ---
PT C/O OF RIGHT ARM PAIN RATING 6/10 PRN MORPHINE PER ORDER
--- NOTE | 2019-09-28 07:40 | NUR ---
PT C/O RUE PAIN 11/07. MEDICATED W/MORPHINE IVP.
[2019-09-28 07:56] LABS: BASO % 0.1 % (0.0-1.0); EOS # 0.1 10*3/uL (0.0-0.4); EOS % 0.8 % (1.0-4.0); LYMPH # 1.7 10*3/uL (1.3-4.4); LYMPH % 14.7 % (27.0-41.0); MEAN CELL VOLUME 85.6 fl (80.0-94.0); MEAN CORPUSCULAR HGB CONC 32.6 g/dl (33.0-37.0); MEAN PLATELET VOLUME 9.7 fl (9.6-12.3); MONO # 1.1 10*3/uL (0.1-1.0); MONO % 9.6 % (3.0-9.0); NEUT # 8.5 10*3/uL (2.3-7.9); NEUT % 74.5 % (47.0-73.0); PLATELET COUNT AUTOMATED 328 10*3/uL (130-400); RED BLOOD COUNT 3.97 10*6/uL (4.50-5.90); RED CELL DISTRI WIDTH 13.4 % (0-14.5); WHITE BLOOD COUNT 11.5 10*3/uL (4.8-10.8)
[2019-09-28 08:19] LABS: ALBUMIN 2.6 gm/dl (3.1-4.5); ALKALINE PHOSPHATASE 79 U/L (45-117); BUN 6 mg/dl (7-24); CHLORIDE 108 mmol/L (98-107); CREATININE 1.01 mg/dL (0.70-1.30); POTASSIUM 3.2 mmol/L (3.5-5.1); SGOT/AST 57 IU/L (3-35); SGPT/ALT 70 U/L (12-78); SODIUM 138 mmol/L (136-145); TOTAL PROTEIN 7.4 gm/dL (6.4-8.2)
--- NOTE | 2019-09-28 08:20 | NUR ---
PT STILL IN PAIN, PER HOSPITALIST CALL , CALLED AND LEFT MESSAGE WITH OR REGARDING PAIN
--- NOTE | 2019-09-28 09:22 | NUR ---
PRN NORCO GIVEN FOR RIGHT ARM PAIN AND BACK PAIN RATING 8/10
--- NOTE | 2019-09-28 10:00 | NUR ---
PT RESTING IN BED WITH EYES CLOSED NO COMPLAINTS AT THIS TIME
--- NOTE | 2019-09-28 11:30 | NUR ---
PT LIVES AT HOME WITH PARENTS. CAN RETURN HOME WHEN MEDICALLY STABLE. WILL CONTINUE TO FOLLOW.
--- NOTE | 2019-09-28 13:17 | NUR ---
PT C/O OF RIGHT ARM PAIN RATING 7/10 PRN MORPHINE GIVEN FOR PAIN
--- NOTE | 2019-09-28 13:30 | NUR ---
PT GLENN FOR I&D
--- NOTE | 2019-09-28 13:31 | NUR ---
PT REFUSED HIV TESTING AT THIS TIME, PER PT HE WAS TESTED IN [place] AND WAS NEGATIVE, PT DENIES SHARING NEEDLES, UNPROTECTED SEX,
--- NOTE | 2019-09-28 16:30 | NUR ---
PT RETURNED FOR OR, PT AA&0X3, DRESSING TO RIGHT ARM CLEAN DRY AND INTACT, MOTHER AT BEDSIDE AT THIS TIME
--- NOTE | 2019-09-28 17:20 | NUR ---
PRN NORCO GIVEN FOR C/O OG PAIN RATING 5/10 TO RIGHT ARM
--- NOTE | 2019-09-28 18:00 | NUR ---
PER PT PRN NORCO WAS EFFECTIVE FOR PAIN
--- NOTE | 2019-09-28 19:38 | NUR ---
ASSUMED CARE FOR THIS PT AT THIS TIME. PT C/O RUE PAIN. MEDICATED W/MORPHINE IVP. DRSG DRY/INTACT TO RUE. PT STATES PAIN IS MUCH TOLERABLE. 2+ RADIAL PULSE. PT REFUSING HIV TESTING. CALL LIGHT IN REACH.
--- NOTE | 2019-09-28 21:33 | NUR ---
PT STATES MORPHINE DOES NOT LAST FOR PAIN RELIEF. MEDICATED W/NORCO PER REQUEST. CALL LIGHT IN REACH.
--- NOTE | 2019-09-28 22:30 | NUR ---
PT RESTING QUEITLY IN BED W/EYES CLOSED. NO S/S OF DISTRESS NOTED. PRN NORCO EFFECTIVE.
[2019-09-29] VITALS: BP 136/66
--- NOTE | 2019-09-29 03:19 | NUR ---
PT C/O RUE PAIN. MEDICATED W/NORCO. RUE DRSG REINFORCED D/T SATURATION. WILL MONITOR.
[2019-09-29 07:09] LABS: BASO % 0.3 % (0.0-1.0); EOS # 0.2 10*3/uL (0.0-0.4); EOS % 1.5 % (1.0-4.0); HEMATOCRIT 32.7 % (42.0-52.0); LYMPH # 2.2 10*3/uL (1.3-4.4); LYMPH % 21.6 % (27.0-41.0); MEAN CELL VOLUME 86.1 fl (80.0-94.0); MEAN CORPUSCULAR HGB 27.6 pg (27.0-31.0); MEAN CORPUSCULAR HGB CONC 32.1 g/dl (33.0-37.0); MEAN PLATELET VOLUME 9.7 fl (9.6-12.3); MONO % 9.7 % (3.0-9.0); NEUT # 6.7 10*3/uL (2.3-7.9); NEUT % 66.3 % (47.0-73.0); PLATELET COUNT AUTOMATED 350 10*3/uL (130-400); RED CELL DISTRI WIDTH 13.7 % (0-14.5); WHITE BLOOD COUNT 10.2 10*3/uL (4.8-10.8)
[2019-09-29 07:37] LABS: ALBUMIN 2.4 gm/dl (3.1-4.5); ALKALINE PHOSPHATASE 68 U/L (45-117); BUN 6 mg/dl (7-24); CHLORIDE 111 mmol/L (98-107); CREATININE 0.96 mg/dL (0.70-1.30); POTASSIUM 3.6 mmol/L (3.5-5.1); SGOT/AST 41 IU/L (3-35); SGPT/ALT 59 U/L (12-78); SODIUM 140 mmol/L (136-145); TOTAL PROTEIN 6.8 gm/dL (6.4-8.2)
[2019-09-29 08:00] VITALS: BP 139/73
--- NOTE | 2019-09-29 11:26 | NUR ---
LIVES AT HOME WITH PARENTS. WILL RETURN HOME WHEN MEDICALLY STABLE WITH NO NEEDS. WILL CONTINUE TO FOLLOW.
[2019-09-29 12:00] VITALS: BP 128/77
--- NOTE | 2019-09-29 13:30 | NUR ---
PT INFORMED THAT IV ANTIBIOTICS WERE APPROVED AND I WILL CALL HIM WITH TIME ONCE SET UP WITH TIME. PHARMACY INFORMED TO ORDER MEDICATION. CENTRAL SCHEDULING NOTIFIED. PT TO COME IN TOMORROW September AT 2:30 PM FOR MEDS. ORDER FAXED TO CENTRAL SCHEDULING, PHARMACY AND REGISTRATION.
--- NOTE | 2019-09-29 13:32 | NUR ---
CALL ANTHEM TO GET PRE AUTORAZATION FOR DALBAVANCIN, PER BINTA AT [facility] ANTHEM NO AUTH IS NEEDED FOR MEDICATION. CALL REF # [id number]
--- NOTE | 2019-09-29 13:41 | NUR ---
Discharge instructions reviewed with patient/family. Patient receptive and verbalizes understanding. Follow-up care arranged. Written instructions given to patient/family. MONTSE RODRIGUEZ
--- NOTE | 2019-09-29 13:49 | NUR ---
CURRICULUM DEVELOPER MILLY OCONNELL NOTIFIED THAT PT WOULD BE COMING TO FLOOR AT 2:30 ON September FOR IV MEDICAIONS. COPY OF ORDER GIVEN TO MARYURI WOODSON ON 4TH FLOOR.
--- NOTE | 2019-09-29 13:52 | NUR ---
CALLED PT AND TOLD HIM HE NEEDED TO BE HERE AT 2:30 PM TOMORROW FOR IV INFUSION. PT VOICES UNDERSTANDING.
== END 2019-09-29 13:41 | disposition home or self-care (01) | DRG 871 ==
LOC: ED 10:25 → 5E 12:28 → EDHOLD 12:28 → 5E 12:48
PROVIDERS: Internal Medicine; Nurse Practitioner Family; Student in an Organized Health Care Education/Training Program; Surgery; ADMIT Emergency Medicine
PROC: 0X960ZZ Drainage of Right Upper Extremity, Open Approach (ICD-10-PCS; principal; 2019-09-28)
DX: A41.89 Other specified sepsis (principal); N17.0 Acute kidney failure with tubular necrosis; L03.113 Cellulitis of right upper limb; L02.413 Cutaneous abscess of right upper limb; F12.90 Cannabis use, unspecified, uncomplicated; F14.10 Cocaine abuse, uncomplicated; E55.9 Vitamin D deficiency, unspecified; F11.90 Opioid use, unspecified, uncomplicated; B95.61 Methicillin susceptible Staphylococcus aureus infection as the cause of diseases classified elsewhere; E87.6 Hypokalemia; L98.499 Non-pressure chronic ulcer of skin of other sites with unspecified severity; D64.9 Anemia, unspecified; R73.9 Hyperglycemia, unspecified; Z72.0 Tobacco use

== ENCOUNTER 2019-12-22 06:31 | Emergency (ER) | payer BC ==
[~2019-12-22] VITALS: Ht 182.8 cm; Wt 90.7 kg
== END 2019-12-22 07:58 | disposition home or self-care (01) ==
LOC: ED 06:31
DX: F19.10 Other psychoactive substance abuse, uncomplicated (principal); F12.90 Cannabis use, unspecified, uncomplicated; F14.90 Cocaine use, unspecified, uncomplicated; F11.90 Opioid use, unspecified, uncomplicated; F17.200 Nicotine dependence, unspecified, uncomplicated

== ENCOUNTER 2020-02-20 15:56 | Emergency (ER) | payer BC ==
[~2020-02-20] VITALS: Ht 190.5 cm; Wt 89.8 kg
[2020-02-20 16:43] LABS: BASO % 0.5 % (0.0-1.0); EOS # 0.4 10*3/uL (0.0-0.4); EOS % 4.6 % (1.0-4.0); HEMATOCRIT 36.8 % (42.0-52.0); LYMPH # 4.1 10*3/uL (1.3-4.4); LYMPH % 51.9 % (27.0-41.0); MEAN CORPUSCULAR HGB 27.4 pg (27.0-31.0); MEAN CORPUSCULAR HGB CONC 31.5 g/dl (33.0-37.0); MEAN PLATELET VOLUME 8.8 fl (9.6-12.3); MONO # 0.6 10*3/uL (0.1-1.0); MONO % 7.5 % (3.0-9.0); NEUT # 2.7 10*3/uL (2.3-7.9); NEUT % 34.6 % (47.0-73.0); PLATELET COUNT AUTOMATED 372 10*3/uL (130-400); RED BLOOD COUNT 4.23 10*6/uL (4.50-5.90); RED CELL DISTRI WIDTH 14.1 % (0-14.5); WHITE BLOOD COUNT 7.9 10*3/uL (4.8-10.8)
[2020-02-20 17:01] LABS: ACT PARTIAL THROMBO TIME 23.6 SECONDS (20.0-32.1); INTERNATIONAL NORM RATIO 1.1 (2.0-3.5)
[2020-02-20 17:05] LABS: ALBUMIN 3.8 gm/dl (3.1-4.5); ALKALINE PHOSPHATASE 77 U/L (45-117); BUN 13 mg/dl (7-24); CHLORIDE 106 mmol/L (98-107); CPK 753 U/L (39-308); CREATININE 1.68 mg/dL (0.70-1.30); LDH 297 U/L (87-241); POTASSIUM 3.7 mmol/L (3.5-5.1); SGOT/AST 31 IU/L (3-35); SGPT/ALT 19 U/L (12-78); SODIUM 141 mmol/L (136-145); TOTAL PROTEIN 8.4 gm/dL (6.4-8.2)
[2020-02-20 17:06] LABS: ETHYL ALCOHOL < 3.0 mg/dl (<3); TROPONIN I < 0.015 ng/ml (<0.045)
== END 2020-02-20 18:48 | disposition home or self-care (01) ==
LOC: ED 15:56
PROVIDERS: Emergency Medicine
DX: F19.10 Other psychoactive substance abuse, uncomplicated (principal); R05 Cough; R79.1 Abnormal coagulation profile

== ENCOUNTER 2020-04-13 16:36 | Emergency (ER) | payer OTHER ==
[~2020-04-13] VITALS: Ht 190.5 cm; Wt 90.7 kg
[2020-04-13] MEDS ORDERED: Motrin,Rufen800 MG PO (17:40)
== END 2020-04-13 18:00 | disposition home or self-care (01) ==
LOC: ED 16:36
DX: S39.012A Strain of muscle, fascia and tendon of lower back, initial encounter (principal); F17.200 Nicotine dependence, unspecified, uncomplicated; V49.9XXA Car occupant (driver) (passenger) injured in unspecified traffic accident, initial encounter; Y93.89 Activity, other specified; Y92.89 Other specified places as the place of occurrence of the external cause; Y99.8 Other external cause status

== ENCOUNTER 2020-04-17 17:23 | Emergency (ER) | payer OTHER | END 2020-04-17 18:17 | disposition home or self-care (01) | LOC: ED 17:23 | DX: S39.012A Strain of muscle, fascia and tendon of lower back, initial encounter (principal); F17.200 Nicotine dependence, unspecified, uncomplicated; Z79.899 Other long term (current) drug therapy; V89.2XXA Person injured in unspecified motor-vehicle accident, traffic, initial encounter; Y93.89 Activity, other specified; Y92.488 Other paved roadways as the place of occurrence of the external cause; Y99.8 Other external cause status ==

== ENCOUNTER 2021-05-31 08:07 | Emergency (ER) | payer SELFPAY ==
[~2021-05-31] VITALS: Wt 95.3 kg
[2021-05-31 10:29] LABS: BASO % 0.7 % (0.0-1.0); EOS # 0.6 10*3/uL (0.0-0.4); EOS % 10.7 % (1.0-4.0); HEMATOCRIT 38.8 % (42.0-52.0); LYMPH % 55.1 % (27.0-41.0); MEAN CELL VOLUME 85.7 fl (80.0-94.0); MEAN CORPUSCULAR HGB 27.4 pg (27.0-31.0); MEAN PLATELET VOLUME 9.2 fl (9.6-12.3); MONO # 0.5 10*3/uL (0.1-1.0); MONO % 9.8 % (3.0-9.0); NEUT # 1.3 10*3/uL (2.3-7.9); NEUT % 23.5 % (47.0-73.0); PLATELET COUNT AUTOMATED 249 10*3/uL (130-400); RED BLOOD COUNT 4.53 10*6/uL (4.50-5.90); RED CELL DISTRI WIDTH 11.9 % (0-14.5); WHITE BLOOD COUNT 5.5 10*3/uL (4.8-10.8)
[2021-05-31 10:43] LABS: BUN 9 mg/dl (7-24); CHLORIDE 106 mmol/L (98-107); CREATININE 1.18 mg/dL (0.70-1.30); POTASSIUM 3.9 mmol/L (3.5-5.1); SODIUM 139 mmol/L (136-145)
[2021-05-31 10:47] LABS: ETHYL ALCOHOL < 3.0 mg/dl (<3)
== END 2021-05-31 10:57 | disposition home or self-care (01) ==
LOC: ED 08:07
PROVIDERS: Internal Medicine
DX: R05.9 Cough, unspecified (principal)

== ENCOUNTER 2021-09-28 18:29 | Emergency (ER) | payer MEDICAID ==
[~2021-09-28] VITALS: Ht 185.4 cm; Wt 81.6 kg
[2021-09-28] MEDS ORDERED: CLINDAMYCIN HC300 MG PO (20:44)
[2021-09-28] MEDS ORDERED: IBU600 M1 PO (21:01)
== END 2021-09-28 20:52 | disposition left against medical advice (07) ==
LOC: ED 18:29
DX: L03.113 Cellulitis of right upper limb (principal)

== ENCOUNTER 2022-06-20 16:00 | Inpatient (IN) | payer MEDICAID ==
[~2022-06-20] VITALS: Ht 188 cm; Wt 97.2 kg
[~2022-06-20 16:00] MED LIST changes: +IBU600 M1 PO
[2022-06-20 16:12] VITALS: BP 141/87
[2022-06-20 17:26] LABS: BASO # 0.1 10*3/uL (0.0-0.1); BASO % 1.2 % (0.0-1.0); EOS # 0.6 10*3/uL (0.0-0.4); EOS % 11.4 % (1.0-4.0); HEMATOCRIT 40.2 % (42.0-52.0); LYMPH # 2.6 10*3/uL (1.3-4.4); LYMPH % 53.4 % (27.0-41.0); MEAN CELL VOLUME 86.3 fl (80.0-94.0); MEAN CORPUSCULAR HGB 28.1 pg (27.0-31.0); MEAN CORPUSCULAR HGB CONC 32.6 g/dl (33.0-37.0); MEAN PLATELET VOLUME 8.6 fl (9.6-12.3); MONO # 0.3 10*3/uL (0.1-1.0); MONO % 6.7 % (3.0-9.0); NEUT # 1.3 10*3/uL (2.3-7.9); NEUT % 27.3 % (47.0-73.0); PLATELET COUNT AUTOMATED 311 10*3/uL (130-400); RED BLOOD COUNT 4.66 10*6/uL (4.50-5.90); RED CELL DISTRI WIDTH 12.8 % (0-14.5); WHITE BLOOD COUNT 4.9 10*3/uL (4.8-10.8)
[2022-06-20 17:44] LABS: ALKALINE PHOSPHATASE 133 U/L (46-116); BUN 8 mg/dl (9-23); CHLORIDE 105 mmol/L (98-107); POTASSIUM 3.8 mmol/L (3.4-5.1); SGPT/ALT 59 U/L (10-49); TOTAL PROTEIN 8.5 gm/dL (6.0-8.0)
[2022-06-20 17:44] LABS: BILIRUBIN 2+ (Negative); BLOOD Negative (Negative); CLARITY Clear (Clear); COLOR Dark Yellow (Yellow); GLUCOSE Negative (Negative); KETONE Trace (Negative); LEUKO ESTERASE Negative (Negative); NITRITE Negative (Negative); PH 5.5 (4.5-8.0); SPECIFIC GRAVITY >= 1.030 (1.001-1.030)
[2022-06-20 17:47] LABS: ETHYL ALCOHOL < 3.0 mg/dl (<3)
[2022-06-20 17:52] LABS: URINE AMPHETAMINES Positive (1000ng/ml); URINE BARBITURATES Negative (200ng/ml); URINE BENZODIAZEPINES Positive (200ng/ml); URINE CANNABINOIDS (THC) Positive (50ng/ml); URINE COCAINE Positive (300ng/ml); URINE METHADONE Negative (300ng/ml); URINE OPIATES Positive (300ng/ml); URINE PHENCYCLIDINE Negative (25ng/ml)
[2022-06-20 18:04] LABS: BACTERIA 1+; CALCIUM OXALATE CRYSTALS Trace; MUCOUS 2+
[2022-06-21] VITALS: BP 134/71
[2022-06-21 08:00] VITALS: BP 123/67
[2022-06-21 14:01] LABS: HEMATOCRIT 39.8 % (42.0-52.0); MEAN CELL VOLUME 88.4 fl (80.0-94.0); MEAN CORPUSCULAR HGB 27.8 pg (27.0-31.0); MEAN CORPUSCULAR HGB CONC 31.4 g/dl (33.0-37.0); MEAN PLATELET VOLUME 9.1 fl (9.6-12.3); PLATELET COUNT AUTOMATED 264 10*3/uL (130-400); RED CELL DISTRI WIDTH 12.9 % (0-14.5); WHITE BLOOD COUNT 5.3 10*3/uL (4.8-10.8)
[2022-06-21 14:02] LABS: MANUAL DIFF REFLEX YES
[2022-06-21 14:10] LABS: ACT PARTIAL THROMBO TIME 25.7 SECONDS (20.0-32.1)
[2022-06-21 14:32] LABS: ATYPICAL LYMPHS 3 % (0-0); PLATELET SUFFICIENCY NORMAL (NORMAL); TOTAL CELLS COUNTED 100 #CELLS
[2022-06-21 14:34] LABS: BURR CELLS FEW; ROULEAUX SLIGHT
[2022-06-21 16:00] VITALS: BP 135/82
[2022-06-22 10:07] LABS: HBSAG Negative (Negative); HEP B CORE AB, IGM Negative (Negative)
== END 2022-06-21 19:05 | disposition left against medical advice (07) | DRG 770 ==
LOC: 5E 16:00
PROVIDERS: Family Medicine; Student in an Organized Health Care Education/Training Program; ADMIT Internal Medicine; ATTEND Internal Medicine
DX: F11.13 Opioid abuse with withdrawal (principal); F15.10 Other stimulant abuse, uncomplicated; F17.210 Nicotine dependence, cigarettes, uncomplicated; D64.9 Anemia, unspecified; R74.01 Elevation of levels of liver transaminase levels; Z53.29 Procedure and treatment not carried out because of patient's decision for other reasons; Z79.899 Other long term (current) drug therapy

== ENCOUNTER 2022-09-21 21:02 | Emergency (ER) | payer MEDICAID ==
[~2022-09-21] VITALS: Ht 187.9 cm; Wt 102.5 kg
[2022-09-21] MEDS ORDERED: SUBOXONE 8 MG-1 EACH SL (21:26)
[2022-09-21 22:05] LABS: BASO % 0.1 % (0.0-1.0); EOS # 0.2 10*3/uL (0.0-0.4); EOS % 2.3 % (1.0-4.0); HEMATOCRIT 41.4 % (42.0-52.0); LYMPH # 2.2 10*3/uL (1.3-4.4); LYMPH % 31.9 % (27.0-41.0); MEAN CELL VOLUME 88.7 fl (80.0-94.0); MEAN CORPUSCULAR HGB 28.1 pg (27.0-31.0); MEAN CORPUSCULAR HGB CONC 31.6 g/dl (33.0-37.0); MEAN PLATELET VOLUME 9.7 fl (9.6-12.3); MONO % 14.3 % (3.0-9.0); NEUT # 3.5 10*3/uL (2.3-7.9); PLATELET COUNT AUTOMATED 175 10*3/uL (130-400); RED BLOOD COUNT 4.67 10*6/uL (4.50-5.90); RED CELL DISTRI WIDTH 12.3 % (0-14.5); WHITE BLOOD COUNT 6.9 10*3/uL (4.8-10.8)
[2022-09-21 22:30] LABS: ALKALINE PHOSPHATASE 67 U/L (46-116); BUN 6 mg/dl (9-23); CHLORIDE 108 mmol/L (98-107); POTASSIUM 4.1 mmol/L (3.4-5.1); SGPT/ALT 123 U/L (10-49); TOTAL PROTEIN 7.4 gm/dL (6.0-8.0)
== END 2022-09-22 00:56 | disposition home or self-care (01) ==
LOC: ED 21:02
PROVIDERS: Student in an Organized Health Care Education/Training Program
DX: R07.89 Other chest pain (principal); Z98.890 Other specified postprocedural states; F17.210 Nicotine dependence, cigarettes, uncomplicated; F14.10 Cocaine abuse, uncomplicated; F12.10 Cannabis abuse, uncomplicated; F15.10 Other stimulant abuse, uncomplicated; F11.90 Opioid use, unspecified, uncomplicated; R79.89 Other specified abnormal findings of blood chemistry

== ENCOUNTER → 2022-10-02 | Outpatient (CLI) | payer MEDICAID ==
[~2022-10-02] MED LIST changes: +SUBOXONE 8 MG-1 EACH SL
[2022-10-03 08:08] LABS: HBSAG Negative (Negative); HEP B CORE AB, IGM Negative (Negative)
[2022-10-05 10:07] LABS: HEPATITIS C ANTIBODY Reactive (Non Reactive)
== END | disposition home or self-care (01) ==
LOC: LAB 12:49
PROVIDERS: ATTEND Nurse Practitioner Family
DX: Z11.59 Encounter for screening for other viral diseases (principal); F11.20 Opioid dependence, uncomplicated; R53.83 Other fatigue

== ENCOUNTER 2022-10-22 09:38 | Emergency (ER) | payer MEDICAID ==
[~2022-10-22] VITALS: Wt 99.8 kg
== END 2022-10-22 10:16 | disposition home or self-care (01) ==
LOC: ED 09:38
DX: H60.92 Unspecified otitis externa, left ear (principal); F14.10 Cocaine abuse, uncomplicated; F12.10 Cannabis abuse, uncomplicated; F15.10 Other stimulant abuse, uncomplicated; F11.90 Opioid use, unspecified, uncomplicated; F17.210 Nicotine dependence, cigarettes, uncomplicated; Z98.890 Other specified postprocedural states

== ENCOUNTER 2022-10-27 12:30 | Emergency (ER) | payer MEDICAID ==
[~2022-10-27] VITALS: Ht 187.9 cm; Wt 90.7 kg
== END 2022-10-27 13:40 | disposition home or self-care (01) ==
LOC: ED 12:30
DX: T50.901A Poisoning by unspecified drugs, medicaments and biological substances, accidental (unintentional), initial encounter (principal); Z98.890 Other specified postprocedural states; F14.10 Cocaine abuse, uncomplicated; F12.10 Cannabis abuse, uncomplicated; F15.10 Other stimulant abuse, uncomplicated; F17.210 Nicotine dependence, cigarettes, uncomplicated; F11.90 Opioid use, unspecified, uncomplicated; Y92.89 Other specified places as the place of occurrence of the external cause

== ENCOUNTER 2023-02-11 19:58 | Emergency (ER) | payer SELFPAY | END 2023-02-11 20:32 | disposition home or self-care (01) | LOC: ED 19:58 | DX: R40.4 Transient alteration of awareness (principal); T50.901A Poisoning by unspecified drugs, medicaments and biological substances, accidental (unintentional), initial encounter; Z98.890 Other specified postprocedural states; F14.10 Cocaine abuse, uncomplicated; F15.10 Other stimulant abuse, uncomplicated; F12.10 Cannabis abuse, uncomplicated; F17.210 Nicotine dependence, cigarettes, uncomplicated; Y92.89 Other specified places as the place of occurrence of the external cause ==

== ENCOUNTER 2023-02-13 11:54 | Emergency (ER) | payer OTHER | END 2023-02-13 12:33 | disposition left against medical advice (07) | LOC: ED 11:54 | DX: T50.901A Poisoning by unspecified drugs, medicaments and biological substances, accidental (unintentional), initial encounter (principal); R40.4 Transient alteration of awareness; Z53.21 Procedure and treatment not carried out due to patient leaving prior to being seen by health care provider; Y92.89 Other specified places as the place of occurrence of the external cause ==

== ENCOUNTER 2023-02-24 17:28 | Emergency (ER) | payer OTHER | END 2023-02-24 20:39 | disposition home or self-care (01) | LOC: ED 17:28 | DX: R41.82 Altered mental status, unspecified (principal); F15.10 Other stimulant abuse, uncomplicated; Z98.890 Other specified postprocedural states; F14.10 Cocaine abuse, uncomplicated; F12.10 Cannabis abuse, uncomplicated; F11.10 Opioid abuse, uncomplicated ==

== ENCOUNTER 2023-02-24 21:51 | Emergency (ER) | payer OTHER | END 2023-02-24 22:12 | disposition left against medical advice (07) | LOC: ED 21:51 | DX: Z00.8 Encounter for other general examination (principal); Z53.21 Procedure and treatment not carried out due to patient leaving prior to being seen by health care provider ==

== ENCOUNTER 2023-02-28 14:15 | Emergency (ER) | payer OTHER | END 2023-02-28 14:40 | disposition left against medical advice (07) | LOC: ED 14:15 | DX: R03.0 Elevated blood-pressure reading, without diagnosis of hypertension (principal); D64.9 Anemia, unspecified; Z53.29 Procedure and treatment not carried out because of patient's decision for other reasons; F15.10 Other stimulant abuse, uncomplicated; F11.10 Opioid abuse, uncomplicated; Z98.890 Other specified postprocedural states; F12.10 Cannabis abuse, uncomplicated; F17.210 Nicotine dependence, cigarettes, uncomplicated ==

== ENCOUNTER 2023-08-29 09:14 | Emergency (ER) | payer OTHER ==
[~2023-08-29] VITALS: Ht 187.9 cm; Wt 97.1 kg
[2023-08-29] MEDS ORDERED: BUPROPION HYDR150 M3 PO (09:19)
[2023-08-29] MEDS ORDERED: CLINDAMYCIN HCL 300 MG CAPSULE PO ONE (09:20)
[2023-08-29] MEDS ORDERED: IBU800 M2 PO (09:28)
[2023-08-29] MEDS ORDERED: CLINDAMYCIN HC300 MG PO (09:28)
[2023-08-29] MEDS ORDERED: IBUPROFEN 800 MG TAB PO ONE (09:30)
[2023-08-29] MEDS ORDERED: Bacitracin Zinc/Neomycin/Pol 0.9 GM PACKET T ONE (09:35)
== END 2023-08-29 10:17 | disposition home or self-care (01) ==
LOC: ED 09:14
DX: S60.221A Contusion of right hand, initial encounter (principal); S80.12XA Contusion of left lower leg, initial encounter; L03.116 Cellulitis of left lower limb; F14.10 Cocaine abuse, uncomplicated; F12.10 Cannabis abuse, uncomplicated; F15.10 Other stimulant abuse, uncomplicated; F17.210 Nicotine dependence, cigarettes, uncomplicated; Z98.890 Other specified postprocedural states; W22.8XXA Striking against or struck by other objects, initial encounter; Y93.89 Activity, other specified; Y92.89 Other specified places as the place of occurrence of the external cause; Y99.8 Other external cause status

== ENCOUNTER 2024-03-17 18:31 | Emergency (ER) | payer OTHER ==
[~2024-03-17] VITALS: Wt 108.9 kg
[~2024-03-17 18:31] MED LIST changes: +BUPROPION HYDR150 M3 PO; +IBU800 M2 PO
[2024-03-17 19:36] LABS: BASO % 0.4 % (0.0-1.0); EOS # 0.1 10*3/uL (0.0-0.4); EOS % 1.8 % (1.0-4.0); MEAN CELL VOLUME 88.6 fl (80.0-94.0); MEAN CORPUSCULAR HGB 29.8 pg (27.0-31.0); MEAN CORPUSCULAR HGB CONC 33.6 g/dl (33.0-37.0); MEAN PLATELET VOLUME 9.4 fl (9.6-12.3); MONO # 0.7 10*3/uL (0.1-1.0); MONO % 9.2 % (3.0-9.0); NEUT # 4.7 10*3/uL (2.3-7.9); NEUT % 63.9 % (47.0-73.0); PLATELET COUNT AUTOMATED 253 10*3/uL (130-400); RED CELL DISTRI WIDTH 11.6 % (0-14.5); WHITE BLOOD COUNT 7.3 10*3/uL (4.8-10.8)
[2024-03-17 20:08] LABS: ALKALINE PHOSPHATASE 58 U/L (46-116); BUN 12 mg/dl (9-23); CHLORIDE 104 mmol/L (98-107); POTASSIUM 3.3 mmol/L (3.4-5.1); SGPT/ALT 50 U/L (5-49)
[2024-03-17] MEDS ORDERED: POTASSIUM CHLORIDE 20 MEQ TAB PO ONE (20:35)
== END 2024-03-17 20:50 | disposition home or self-care (01) ==
LOC: ED 18:31
PROVIDERS: Nurse Practitioner
DX: F15.929 Other stimulant use, unspecified with intoxication, unspecified (principal); F14.10 Cocaine abuse, uncomplicated; F12.10 Cannabis abuse, uncomplicated; F17.210 Nicotine dependence, cigarettes, uncomplicated; F11.90 Opioid use, unspecified, uncomplicated; Z79.899 Other long term (current) drug therapy; Z79.2 Long term (current) use of antibiotics

== ENCOUNTER 2024-04-19 20:19 | Emergency (ER) | payer OTHER ==
[2024-04-19] MEDS ORDERED: ACETAMINOPHEN 325 MG TAB PO ONE (20:35)
[2024-04-19] MEDS ORDERED: MEDROL DOSEPAK4 MG PO (20:59)
== END 2024-04-19 21:26 | disposition home or self-care (01) ==
LOC: ED 20:19
DX: J40 Bronchitis, not specified as acute or chronic (principal); Z20.822 Contact with and (suspected) exposure to COVID-19; F14.10 Cocaine abuse, uncomplicated; F12.10 Cannabis abuse, uncomplicated; F15.10 Other stimulant abuse, uncomplicated; F17.210 Nicotine dependence, cigarettes, uncomplicated; F11.90 Opioid use, unspecified, uncomplicated; Z98.890 Other specified postprocedural states